=== PATIENT | female | born 1975 | race Caucasian/White ===

== ENCOUNTER → 2018-07-25 10:30 | Outpatient (CLI) | payer BC, SELFPAY ==
[2018-07-30 13:30] LABS: HPV APTIMA, High Risk Negative (Negative)
== END ==
PROVIDERS: Family Provider Family Medicine; PCP Family Medicine; Referring Provider Nurse Practitioner Women's Health; Visit Provider Nurse Practitioner Women's Health
DX: Z12.4 Encounter for screening for malignant neoplasm of cervix (principal)
CPT/HCPCS: 87624; 88175; G0145

== ENCOUNTER → 2018-07-30 07:50 | Outpatient (CLI) | payer BC, SELFPAY ==
[2018-07-30 08:11] LABS: Absolute Lymphocyte Count 2.23 X10^3/ul (0.83-4.51); Absolute Neutrophil Count 3.7 X10^3/uL (2.0-7.7); Basophil# 0.05 X10^3/uL; Basophil% 0.7 % (0-1); Eosinophil# 0.09 X10^3/uL; Eosinophils% 1.3 % (0-5); Hematocrit 39.9 % (37-47); Hemoglobin 13.4 g/dl (12.0-15.0); Lymphocyte # 2.23 X10^3/ul (4.0); Lymphocyte % 33.3 % (19-41); Mean Corp Hgb Conc 33.6 g/gl (32-36); Mean Corpuscular Hgb 30.9 pg (27.0-32.0); Mean Corpuscular Volume 91.9 fL (81-99); Mean Platelet Vol. 9.8 fl (6.2-12.0); Monocyte# 0.62 X10^3/uL; Monocyte% 9.3 % (0-10); Neutrophil # 3.68 X10^3/uL (2.7-7.7); Neutrophil % 55.1 % (47-70); POSITIVE COUNT NO; POSITIVE DIFFERENTIAL NO; POSITIVE MORPHOLOGY NO; Platelet Count 233 K/mm3 (150-450); RBC Distribution Width CV 12.4 % (11.6-14.6); Red Blood Count 4.34 M/mm3 (4.2-5.4); White Blood Count 6.7 K/mm3 (4.4-11.0)
[2018-07-30 08:58] LABS: Cholesterol 185 mg/dL (200); Glucose 87 mg/dL (74-106); High Density Lipoprotein 52 mg/dL; Thyroid Stim Hormone (TSH) 0.47 uIU/mL (0.358-3.74); Triglycerides 90 mg/dL; Very Low Density Lipoprotein 18 mg/dL (5-40)
== END ==
PROVIDERS: Family Provider Family Medicine; PCP Family Medicine; Referring Provider Nurse Practitioner Women's Health; Visit Provider Nurse Practitioner Women's Health
DX: Z00.00 Encounter for general adult medical examination without abnormal findings (principal); R53.83 Other fatigue
CPT/HCPCS: 36415; 80061; 82947; 84443; 85025

== ENCOUNTER → 2019-01-30 06:44 | Outpatient (CLI) | payer BC, SELFPAY ==
[2019-01-16 09:34] VITALS: BMI 27.6
--- NOTE | 2019-01-30 06:46 | CT_ITS ---
STUDY: CT MAXILLOFACIAL SINUSES REASON FOR EXAM: Female, 43 years old. Sinusitis x3 weeks RADIATION DOSAGE (If Supplied By Facility): CTDIvol = ( 33.06 ) mGy, DLP = ( 755.34 ) mGycm TECHNIQUE: The patient was scanned in a multi detector CT scanner. High resolution axial imaging was performed without the administration of intravenous contrast material. Sagittal and coronal images were reconstructed. Individualized dose optimization techniques were used for this CT. COMPARISON: None. FINDINGS: FRONTAL SINUSES: Normal aeration, without mucosal inflammatory disease. ETHMOIDAL SINUSES: Normal aeration, without mucosal inflammatory disease. MAXILLARY SINUSES: Normal aeration, with minimal left mucosal inflammatory disease. SPHENOIDAL SINUSES: Normal aeration, with minimal bilateral mucosal inflammatory disease. There is patency of the bilateral maxillary infundibuli with normal uncinate processes, ethmoid bullae, and hiatus semilunaris. Bilateral small bilateral middle turbinates. Normal bilateral inferior turbinates. There is a minimal right sided nasal septal deviation with a small right sided nasal septal spur. There is patency of the bilateral nasal airways. The visualized osseous structures are normal. The mandible and bilateral temporomandibular joints are intact. 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 The bilateral mastoid air cells are clear. The visualized bilateral orbital contents are normal. CT/Sinus/Facial Bone IMPRESSION: Minimal sinus inflammation as above. Patent bilateral ostiomeatal units. Other nonacute findings as outlined above. Electronically Signed: Sarina Cheek MD at 4:24 EDT , Service support ,
== END ==
PROVIDERS: Family Provider Family Medicine; PCP Family Medicine; Referring Provider Otolaryngology; Visit Provider Otolaryngology
DX: J32.9 Chronic sinusitis, unspecified (principal)
CPT/HCPCS: 70486

== ENCOUNTER → 2019-07-10 | Outpatient (CLI) | payer BC, SELFPAY ==
[2019-07-03 09:31] VITALS: BMI 27.6
--- NOTE | 2019-07-10 13:53 | US_ITS ---
STUDY: ULTRASOUND TRANSVAGINAL CLINICAL: Female, 44 years old. Bleeding TECHNIQUE: Transabdominal and Transvaginal COMPARISON: None. FINDINGS: Normal uterine size measuring 9.6 cm in maximal craniocaudal dimension. There are no myometrial masses. Normal endometrial thickness measuring 1.3 mm. There are no endometrial masses, and there is no fluid in the endometrial cavity. Normal uterine cervix. Normal right ovary, measuring 3.6 x 2.5 x 2.6 cm. There are multiple follicles with a 2.0 cm dominant cyst. Normal left ovary, measuring 2.4 x 2.0 x 1.3 cm. There are multiple follicles without a dominant cyst. There is no free fluid in the pelvis. Bladder is sonographically normal US/Transvaginal Non- IMPRESSION: No suspicious sonographic findings Electronically Signed: Froy Ny MD at 15:55 EDT , Service support ,
--- NOTE | 2019-07-10 13:53 | US_ITS ---
STUDY: ULTRASOUND TRANSVAGINAL CLINICAL: Female, 44 years old. Bleeding TECHNIQUE: Transabdominal and Transvaginal COMPARISON: None. FINDINGS: Normal uterine size measuring 9.6 cm in maximal craniocaudal dimension. There are no myometrial masses. Normal endometrial thickness measuring 1.3 mm. There are no endometrial masses, and there is no fluid in the endometrial cavity. Normal uterine cervix. Normal right ovary, measuring 3.6 x 2.5 x 2.6 cm. There are multiple follicles with a 2.0 cm dominant cyst. Normal left ovary, measuring 2.4 x 2.0 x 1.3 cm. There are multiple follicles without a dominant cyst. There is no free fluid in the pelvis. Bladder is sonographically normal US/Pelvic (Non ) IMPRESSION: No suspicious sonographic findings Electronically Signed: Froy Ny MD at 15:55 EDT , Service support ,
--- NOTE | 2019-07-10 16:27 | BI_ITS ---
MAMMOGRAPHY - BILATERAL SCREENING REASON FOR EXAM: Female, 44 years old. Routine annual screening examination. PERTINENT HISTORY: Non-contributory. TECHNIQUE: Digital bilateral breast nichole (3D mammographic acquisition) in the CC and MLO projections. 2-D mediolateral oblique (MLO) and craniocaudad (CC) views of both breasts were obtained. CAD: Full Field Digital Mammography with Computer Added Detection was performed. COMPARISON: None. Baseline examination. FINDINGS: Breast Composition: The breasts are heterogeneously dense, which may obscure small masses. There is a 1.6 cm x 1.9 cm well-defined nodule in the central lateral aspect of the right breast. Correlation with ultrasound is recommended for further evaluation. No other significant abnormalities are identified. BI/SCREEN MAMM (CAD) W/NICHOLE BILAT IMPRESSION: 1.6 cm x 1.9 cm well-defined nodule in the central lateral aspect of the right breast as described. Correlation with ultrasound is recommended. ASSESSMENT CATEGORY: BIRADS Category 0: Incomplete. Need additional imaging evaluation. A letter regarding these results will be sent to the patient by the facility within 30 days. Approximately 10% of breast cancers are not detected by mammography. A normal mammogram should not delay biopsy of a clinically suspicious abnormality. [id number] Electronically Signed: John Cm, at 8:57 EDT , Service support ,
== END | disposition home or self-care (01) ==
LOC: US 13:38
PROVIDERS: Family Provider Family Medicine; PCP Family Medicine; Referring Provider Nurse Practitioner Women's Health; Visit Provider Nurse Practitioner Women's Health
DX: N93.9 Abnormal uterine and vaginal bleeding, unspecified (principal); Z12.31 Encounter for screening mammogram for malignant neoplasm of breast
CPT/HCPCS: 76830; 76856; 77063; 77067; 93976

== ENCOUNTER → 2019-07-17 | Outpatient (CLI) | payer BC, SELFPAY ==
[2019-07-03 09:31] VITALS: BMI 27.6
--- NOTE | 2019-07-17 10:59 | US_ITS ---
STUDY: ULTRASOUND BREAST - RIGHT REASON FOR EXAM: Female, 44 years old. Abnormal screening mammogram. TECHNIQUE: Axial and longitudinal images of the RIGHT breast were performed with a high resolution ultrasound transducer. COMPARISON: Comparison is made with prior mammogram dated July 10, 2019. FINDINGS: RIGHT Breast: The mammographic abnormality corresponds to a 2.9 cm x 3.2 cm x 1.5 cm septated cyst. This is at the 11:00 position breast at 2 cm from nipple. US/Breast Limited Unilateral IMPRESSION: The mammographic abnormality corresponds to a 2.9 cm x 3.2 cm x 1.5 cm septated cyst. ASSESSMENT CATEGORY: BIRADS Category 2: Benign. A letter regarding these results will be sent to the patient by the facility within 30 days. Electronically Signed: John Cm, at 13:37 EDT , Service support ,
== END | disposition home or self-care (01) ==
PROVIDERS: Family Provider Family Medicine; PCP Family Medicine; Referring Provider Nurse Practitioner Women's Health; Visit Provider Nurse Practitioner Women's Health
DX: R92.8 Other abnormal and inconclusive findings on diagnostic imaging of breast (principal)
CPT/HCPCS: 76642

== ENCOUNTER → 2019-07-25 | Outpatient (CLI) | payer BC, SELFPAY ==
--- NOTE | 2019-07-24 10:00 | CER_PTH ---
PATIENT: ISATU MATHEWS LOC: [facility] U#:[id number] AGE/SX: 44/F ROOM: RE07/25/[address]: MARTHA Lopez : 1975 BED: DIS: 07/25/2019 SPEC #: [id number] RECD: 07/24/19 16:50 STATUS: SHLOMO REAdolph #: [id number] KIM: 07/24/19 10:[address]: Jackie Steel NP DEPT: SURGICAL PATHOLOGY RECD BY: Cecil Colby ENTERED: 07/25/19 11:49 SP TYPE: CERV OTHR DR: Dr. Vineet Bazzi, DO Tissues: A - Uterine cervix, NOS B - Endometrium, NOS Procedures: Surgery Specimen Level IV HEADER OPERATION: Cervical polypectomy; endometrial biopsy PRE-OP DIAGNOSIS: Abnormal uterine bleeding TISSUE SUBMITTED: A - Cervix, B - Endometrial lining MICROSCOPIC DIAGNOSIS A. Cervix, biopsy: Polypoid fragment of endocervix with squamous metaplasia and chronic inflammation. B. Endometrium, biopsy: Secretory endometrium. AM:madhu 07/26/19 MICROSCOPIC DESCRIPTION Slides are reviewed. GROSS DESCRIPTION A - Received in fixative is one container labeled with the patient's name and designated cervix. The specimen consists of a single irregular fragment of light to dark charles soft tissue measuring 0.6 x 0.5 x 0.2 cm. The specimen is totally submitted in one cassette. B - Received in fixative is one container labeled with the patient's name and designated endometrial lining. The specimen consists of multiple elongated fragments of light charles soft tissue that in aggregate measure 2.5 x 2 x 0.2 cm. The specimen is totally submitted in one cassette. / AM:madhu 07/25/19 TC:3 CPT: 57868 x2
[2019-07-24 10:12] VITALS: BMI 27.6
== END | disposition home or self-care (01) ==
PROVIDERS: Family Provider Family Medicine; PCP Family Medicine; Referring Provider Nurse Practitioner Women's Health; Visit Provider Nurse Practitioner Women's Health
DX: N93.9 Abnormal uterine and vaginal bleeding, unspecified (principal)
CPT/HCPCS: 88305

== ENCOUNTER → 2020-03-18 | Outpatient (CLI) | payer BC, SELFPAY ==
[2019-11-20 09:30] VITALS: BMI 27.6
[2020-03-18 15:44] LABS: Absolute Lymphocyte Count 2.22 X10^3/uL (0.83-4.51); Absolute Neutrophil Count 4.7 X10^3/uL (2.0-7.7); Basophil# 0.05 X10^3/uL; Basophil% 0.7 % (0-1); Eosinophil# 0.09 X10^3/uL; Eosinophils% 1.2 % (0-5); Hematocrit 39.5 % (37-47); Hemoglobin 12.5 g/dL (12.0-15.0); Lymphocyte # 2.22 X10^3/ul (4.0); Lymphocyte % 28.9 % (19-41); Mean Corp Hgb Conc 31.6 g/dL (32-36); Mean Corpuscular Volume 94.7 fL (81-99); Mean Platelet Vol. 10.6 fl (6.2-12.0); Monocyte# 0.62 X10^3/uL; Monocyte% 8.1 % (0-10); NRBC Flagged by Analyzer 0 % (0-5); Neutrophil # 4.69 X10^3/uL (2.7-7.7); Platelet Count 267 K/mm3 (150-450); RBC Distribution Width CV 13.1 % (11.6-14.6); RBC Distribution Width SD 44.8 fl (35.1-43.9); Red Blood Count 4.17 M/mm3 (4.2-5.4); White Blood Count 7.7 K/mm3 (4.4-11.0)
[2020-03-18 16:35] LABS: Ferritin 4 ng/mL (8-252); Iron 30 ug/dL (50-170); T4 Free Direct 0.87 ng/dL (0.76-1.46); Thyroid Stim Hormone (TSH) 0.47 uIU/mL (0.358-3.74)
== END | disposition home or self-care (01) ==
LOC: BFHLAB 11:22
PROVIDERS: PCP Family Medicine; Visit Provider Family Medicine
DX: D64.9 Anemia, unspecified (principal); E01.0 Iodine-deficiency related diffuse (endemic) goiter; R53.83 Other fatigue
CPT/HCPCS: 36415; 82728; 83540; 84439; 84443; 85025

== ENCOUNTER → 2020-03-26 09:58 | Outpatient (CLI) | payer BC, SELFPAY ==
[2019-11-20 09:30] VITALS: BMI 27.6
--- NOTE | 2020-03-26 10:02 | US_ITS ---
STUDY: THYROID ULTRASOUND REASON FOR EXAM: Female, 44 years old. NODULES TECHNIQUE: Ultrasound evaluation of the thyroid was performed with real-time and static porter-scale imaging. COMPARISON: Prior thyroid ultrasound of June 02, 2017 FINDINGS: RIGHT LOBE: The right lobe of the thyroid gland measures 5.0 x 1.7 x 1.3 cm. There is a homogeneous echotexture. There are 3 hypoechoic heterogeneous nodules measuring 5 x 4 x 4 mm, 5 x 4 x 3 mm and 5 x 4 x 4 mm. LEFT LOBE: The left lobe of the thyroid gland measures 5.3 x 1.9 x 1.4 cm. There is a homogeneous echotexture. There is a single hypoechoic heterogeneous nodule measuring 7 x 5 x 3 mm. ISTHMUS: The isthmus measures 0.2 cm. US/Thyroid IMPRESSION: Continued mild thyroid enlargement not substantially changed from the prior exam. 3. Stable solid hypoechoic heterogeneous nodules of the right thyroid not substantially changed from the prior exam. Single hypoechoic heterogeneous solid nodule of the left thyroid 7 x 5 x 3 mm and not substantially changed in size from the prior exam. Electronically Signed: Milli Wei MD at 16:56 EDT , Service support ,
== END ==
PROVIDERS: PCP Family Medicine; Referring Provider Family Medicine; Visit Provider Family Medicine
DX: E04.2 Nontoxic multinodular goiter (principal)
CPT/HCPCS: 76536

== ENCOUNTER → 2021-01-21 07:47 | Outpatient (CLI) | payer OTHER, SELFPAY ==
[2019-11-20 09:30] VITALS: BMI 27.6
--- NOTE | 2021-01-21 07:49 | RAD_ITS ---
STUDY: X-RAY - LUMBAR SPINE REASON FOR EXAM: Female, 45 years old. LOW BACK PAIN TECHNIQUE: 2 view(s) of the lumbar spine were obtained. COMPARISON: None FINDINGS: Normal lumbar lordosis. There is no substantial scoliosis. There is a normal alignment of the vertebrae. Normal vertebral bodies and endplates. Normal disc space heights. There is evidence of bilateral tubal ligation clips. RAD/Lumbar Spine 2 or 3 Views IMPRESSION: Normal x-ray examination of the lumbar spine. Electronically Signed: John Cm MD at 12:51 EDT , Service support ,
== END ==
PROVIDERS: PCP Family Medicine; Referring Provider Anesthesiology Pain Medicine; Visit Provider Anesthesiology Pain Medicine
DX: M54.5 Low back pain (principal)
CPT/HCPCS: 72100

== ENCOUNTER 2021-10-08 14:21 | Outpatient (CLI) | payer BC, SELFPAY ==
--- NOTE | 2021-10-08 14:28 | RAD_ITS ---
STUDY: X-RAY CHEST REASON FOR EXAM: Female, 46 years old. TB SCREENING TECHNIQUE: PA and lateral views of the chest. COMPARISON: Comparison is made with prior study dated 02/26/2017. FINDINGS: The lungs are clear and expanded. There is no demonstrated pleural abnormality. Normal size heart. Normal mediastinum and anabelle. Normal visualized pulmonary arteries. Normal visualized aortic arch and descending thoracic aorta. There is a mild dextroscoliosis of the thoracic spine. Normal visualized ribs, clavicles, and shoulders. There is no demonstrated abnormality of the visualized soft tissue structures of the upper abdomen. RAD/Chest PA and Lateral IMPRESSION: Normal x-ray examination of the chest. Electronically Signed: John Cm MD at 15:07 EST , Service support ,
== END 2021-10-08 23:59 | disposition short-term general hospital (02) ==
LOC: RAD 14:26
PROVIDERS: PCP Family Medicine; Referring Provider Family Medicine; Visit Provider Family Medicine
DX: Z11.1 Encounter for screening for respiratory tuberculosis (principal)
CPT/HCPCS: 71046

== ENCOUNTER 2021-10-25 09:13 | Outpatient (CLI) | payer BC, SELFPAY ==
--- NOTE | 2021-10-25 09:20 | RAD_ITS ---
STUDY: X-RAY - BILATERAL RIBS WITH CHEST REASON FOR EXAM: Female, 46 years old. TRAUMA TECHNIQUE - RIBS: 6 view(s) of the ribs. TECHNIQUE - CHEST: Single PA view of the chest. COMPARISON: Comparison is made with prior chest radiograph dated 10/08/2021. FINDINGS - RIBS : Normal visualized ribs without a demonstrated fracture. FINDINGS - CHEST: The lungs are clear and expanded. There is no demonstrated pleural abnormality. Normal size heart. Normal mediastinum and anabelle. Normal visualized pulmonary arteries. Normal visualized aortic arch and descending thoracic aorta. Normal visualized thoracic spine. Normal visualized ribs, clavicles, and shoulders. There is no demonstrated abnormality of the visualized soft tissue structures of the upper abdomen. RAD/Ribs Jon Min 4V w/PA Chest IMPRESSION: RIBS: Normal x-ray examination of the bilateral ribs. CHEST: Normal x-ray examination of the chest. Electronically Signed: John Cm MD at 12:20 EST ,
== END 2021-10-25 23:59 | disposition short-term general hospital (02) ==
LOC: RAD 09:15
PROVIDERS: PCP Family Medicine; Referring Provider Anesthesiology Pain Medicine; Visit Provider Anesthesiology Pain Medicine
DX: S29.9XXA Unspecified injury of thorax, initial encounter (principal)
CPT/HCPCS: 71101; 71111

== ENCOUNTER → 2022-01-31 | Outpatient (CLI) | payer BC, SELFPAY ==
--- NOTE | 2022-01-31 09:20 | EMB_PTH ---
PATIENT: ISATU MATHEWS LOC: [facility] U#:[id number] AGE/SX: 46/F ROOM: RE01/31/[address]: MARTHA Lopez : 1975 BED: DIS: 01/31/2022 SPEC #: [id number] RECD: 01/31/22 10:08 STATUS: SHLOMO REAdolph #: [id number] KIM: 01/31/22 09:[address]: Jackie Steel NP DEPT: SURGICAL PATHOLOGY RECD BY: Nupur Castañeda ENTERED: 01/31/22 10:38 SP TYPE: ENDOM BX/C DENY DR: Dr. Vineet Bazzi DO Tissues: Endometrium, NOS Procedures: Surgery Specimen Level IV HEADER OPERATION: Endometrial biopsy PRE-OP DIAGNOSIS: Abnormal uterine bleeding TISSUE SUBMITTED: Endometrial biopsy MICROSCOPIC DIAGNOSIS Endometrial biopsy: Proliferative endometrium. See comment. MAG:madhu 02/01/2022 COMMENT Clinical correlation and appropriate follow up are necessary. MICROSCOPIC DESCRIPTION Slides are reviewed. GROSS DESCRIPTION Received is one container labeled with the patient's name and not further designated. The specimen consists of multiple irregular fragments of pink soft tissue that in aggregate measure 2.5 x 1.5 x 0.2 cm. The specimen is totally submitted in one cassette. / SJ:rg 01/31/2022 :4 CPT: 13903
== END | disposition home or self-care (01) ==
LOC: LABSPEC 10:19
PROVIDERS: PCP Family Medicine; Referring Provider Nurse Practitioner Women's Health; Visit Provider Nurse Practitioner Women's Health
DX: N93.9 Abnormal uterine and vaginal bleeding, unspecified (principal)
CPT/HCPCS: 88305

== ENCOUNTER → 2022-02-16 | Outpatient (CLI) | payer BC, SELFPAY ==
--- NOTE | 2022-02-16 07:32 | US_ITS ---
STUDY: ULTRASOUND OF THE FEMALE PELVIS - COMPLETE REASON FOR EXAM: Female, 46 years old. AUB LMP: 02/12/2022 TECHNIQUE: Transabdominal and Transvaginal TECHNICAL QUALITY: Adequate. COMPARISON: 07/10/2019 FINDINGS: The uterus is anteverted and is in a midline position. The uterus measures 10.8 x 7.0 x 6.1 cm. Normal uterine cervix. The endometrium measures 5 mm in thickness, and is hyperechoic. There is no demonstrated endometrial mass. There is a 2 cm isoechoic mass within the right side of the body of the uterus consistent with an intramural fibroid. I.U.D. - The patient does not have an I.U.D. The right ovary is visualized. The right ovary measures 3.4 x 2.9 x 3.2 cm. There is no right ovarian cyst or ovarian mass. There is no visualized right adnexal mass or complex lesion. There is normal arterial and normal venous vascularity. The left ovary is visualized. The left ovary measures 2.5 x 2.2 x 2.0 cm. There is no left ovarian cyst or ovarian mass. There is no visualized left adnexal mass or complex lesion. There is normal arterial and normal venous vascularity. There is minimal fluid in the cul-de-sac. The pre void volume of the bladder was ml. The post void volume of the bladder was ml. Polycystic ovary disease: No. US/Pelvic (Non ) IMPRESSION: Small intramural fibroid in the right side of the body of the uterus. Electronically Signed: Jorden Callahan MD at 8:38 EDT ,
--- NOTE | 2022-02-16 07:32 | US_ITS ---
STUDY: ULTRASOUND OF THE FEMALE PELVIS - COMPLETE REASON FOR EXAM: Female, 46 years old. AUB LMP: 02/12/2022 TECHNIQUE: Transabdominal and Transvaginal TECHNICAL QUALITY: Adequate. COMPARISON: 07/10/2019 FINDINGS: The uterus is anteverted and is in a midline position. The uterus measures 10.8 x 7.0 x 6.1 cm. Normal uterine cervix. The endometrium measures 5 mm in thickness, and is hyperechoic. There is no demonstrated endometrial mass. There is a 2 cm isoechoic mass within the right side of the body of the uterus consistent with an intramural fibroid. I.U.D. - The patient does not have an I.U.D. The right ovary is visualized. The right ovary measures 3.4 x 2.9 x 3.2 cm. There is no right ovarian cyst or ovarian mass. There is no visualized right adnexal mass or complex lesion. There is normal arterial and normal venous vascularity. The left ovary is visualized. The left ovary measures 2.5 x 2.2 x 2.0 cm. There is no left ovarian cyst or ovarian mass. There is no visualized left adnexal mass or complex lesion. There is normal arterial and normal venous vascularity. There is minimal fluid in the cul-de-sac. The pre void volume of the bladder was ml. The post void volume of the bladder was ml. Polycystic ovary disease: No. US/Transvaginal Non- IMPRESSION: Small intramural fibroid in the right side of the body of the uterus. Electronically Signed: Jorden Callahan MD at 8:38 EDT ,
--- NOTE | 2022-02-16 07:32 | BI_ITS ---
MAMMOGRAPHY - BILATERAL SCREENING REASON FOR EXAM: Female, 46 years old. Routine annual screening examination. PERTINENT HISTORY: Non-contributory. TECHNIQUE: Digital bilateral breast nichole (3D mammographic acquisition) in the CC and MLO projections. 2-D mediolateral oblique (MLO) and craniocaudad (CC) views of both breasts were obtained. CAD: Full Field Digital Mammography with Computer Added Detection was performed. COMPARISON: Bilateral screening mammogram from 07/10/2019. Right breast ultrasound from 07/17/2019. FINDINGS: Breast Composition: The breasts are extremely dense, which lowers the sensitivity of mammography. There is a 3.1 x 2.8 cm oval mass in the right central upper breast, middle depth approximately 3.7 cm posterior to the nipple seen best on the tomosynthesis views. Further assessment with ultrasound is recommended. The lesion previously characterized as a cyst in the central left outer breast is no longer identified and may have resolved. No suspicious calcifications. No other significant abnormalities are identified. BI/SCRN MAMM (CAD)W/NICHOLE BILAT IMPRESSION: Further imaging evaluation recommended, as described above. (E) ASSESSMENT CATEGORY: BIRADS Category 0: Incomplete. Need additional imaging evaluation. A letter regarding these results will be sent to the patient by the facility within 30 days. Approximately 10% of breast cancers are not detected by mammography. A normal mammogram should not delay biopsy of a clinically suspicious abnormality. [id number] Electronically Signed: Neil Connelly, at 17:08 EDT ,
== END | disposition home or self-care (01) ==
LOC: US 07:30
PROVIDERS: PCP Family Medicine; Referring Provider Nurse Practitioner Women's Health; Visit Provider Nurse Practitioner Women's Health
DX: N93.9 Abnormal uterine and vaginal bleeding, unspecified (principal); Z12.31 Encounter for screening mammogram for malignant neoplasm of breast
CPT/HCPCS: 76830; 76856; 77063; 77067

== ENCOUNTER → 2022-02-18 | Outpatient (CLI) | payer BC, SELFPAY ==
--- NOTE | 2022-02-18 12:35 | US_ITS ---
STUDY: ULTRASOUND BREAST - RIGHT REASON FOR EXAM: Female, 46 years old. Abnormal screening mammogram. TECHNIQUE: Axial and longitudinal images of the RIGHT breast were performed with a high resolution ultrasound transducer. # OF IMAGES: 21 COMPARISON: 02/16/2022 FINDINGS: RIGHT Breast: Heterogeneous background echotexture. At 12 o''clock, 1 cm from the nipple, ultrasound confirms a 2.8 cm oval parallel circumscribed anechoic mass with posterior enhancement consistent with a cyst. Another adjacent 1.3 cm cyst is noted. At 11 o''clock, 1 cm from nipple, ultrasound confirms a 1.3 cm oval parallel circumscribed anechoic mass with posterior enhancement consistent with a cyst.: US/Breast Limited Unilateral IMPRESSION: Fibrocystic change. ASSESSMENT CATEGORY: BIRADS Category 2: Benign. A letter regarding these results will be sent to the patient by the facility within 30 days. Electronically Signed: Jorden Callahan MD at 14:57 EDT ,
== END | disposition home or self-care (01) ==
LOC: OPUS 12:34
PROVIDERS: PCP Family Medicine; Visit Provider Nurse Practitioner Women's Health
DX: N63.10 Unspecified lump in the right breast, unspecified quadrant (principal)
CPT/HCPCS: 76642

== ENCOUNTER → 2022-02-24 | Outpatient (CLI) | payer BC, SELFPAY ==
[2022-02-28 12:04] LABS: HPV APTIMA, High Risk Negative (Negative)
== END | disposition home or self-care (01) ==
LOC: LABSPEC 11:28
PROVIDERS: PCP Family Medicine; Visit Provider Obstetrics & Gynecology
DX: Z12.4 Encounter for screening for malignant neoplasm of cervix (principal)
CPT/HCPCS: 87624; 88175; G0145

== ENCOUNTER 2022-03-11 07:53 | Day surgery (SDC) | payer BC, SELFPAY ==
--- NOTE | 2022-03-10 16:46 | HP.PCM_ITS ---
History and Physical Date of Admission: 03/11/22 [facility] Department [address] [place] [address] OFFICE VISIT Date of Service:? 02/24/22 MR#: [id number] Acct: [id number] Name:? ISATU MATHEWS Rep #: [id number] : 1975 ? ? Provider: Dr. Selena Morrison, DO Age/Sex:? 46/F ? ? Location: [facility] – [place] Status: Signed Intake Vital Signs ? 02/24/2210:21 Height 5 ft 3 in Weight: 158 lb BMI 28.0 BP 142/92 H Intake Visit Reasons:?Surgical Consult poss. ablation Addiction Counselor Required: No Is patient in pain?: No Allergies metoclopramide [From Reglan] Adverse Reaction (Verified 02/24/22 10:21) Other Medications ferrous sulfate 325 mg (65 mg iron) tablet 325 mg PO DAILY 01/31/22 [History Confirmed 02/24/22] sertraline 100 mg tablet 100 mg PO DAILY 01/31/22 [History Confirmed 02/24/22] Post menopausal: No Patient : No : [facility] History? ADD (attention deficit disorder) Gave to child recently Surgical History? Hx of cholecystectomy S/P sinus surgery Family History? Father Esophageal cancer CVA (cerebral vascular accident)Grandfather Heart diseaseGrandmother ALS (amyotrophic lateral sclerosis)Mother SarcoidosisOther Cancer Multiple sclerosis Thyroid disorder Social History? Smoking Status:? Former smoker alcohol intake:? current alcohol intake frequency: holidays/special occasions only substance use type:? does not use caffeine:? Yes what type of physical activity do you participate in:? none seatbelt use:? always do you feel safe at home:? Yes additional social history:? 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 HPI Surgical Consult poss. ablation Details: ISATU REID is a 46 year old who presents for consultation for endometrial ablation. She has as h/o bilateral salpingectomy and as a 10.8 cm uterus with a 2 cm intramural fibroid. She declines other therapy. EMB was performed last visit and showed proliferative endometrirum Pregancy History ? ? ? 3 ? Elective abortions ? Hx Para ? ? ? 3 ? Spontaneous abortions ? Hx # Term Pregnancies ? Ectopic pregnancies ? Hx # Pregnancies ? Multiple births ? # of living children ? Past Pregnancies Del. Date Name GA/Weeks Outcome Route Bth Weight Gen Labor Lgth Anesthe arnaud Del Locatn Provider FOB Unknown Kathy-1995 ? Unknown Jose Juan-1997 ? Unknown Cameron-2001 ? ROS Const ROS Unobtainable: All systems reviewed & are unremarkable except as noted in H Resp Resp: Reports system reviewed and no additional complaints, except as documented; Denies cough GI GI: Reports as per HPI Psych Psych: Reports system reviewed and no additional complaints, except as documented Exam Const General: cooperative, healthy appearing, comfortable and no acute distress Resp Effort & Inspection: normal respiratory effort Skin General: no rashes or lesions noted Psych Appearance: grossly normal Speech and Movement: speech and movement normal Coding Level of Care Code Off vis,est,level 4 Diagnoses Abnormal uterine bleeding (AUB)? N93.9 Assessment and Plan Assessment and Plan (1) Abnormal uterine bleeding (AUB): ?Status:?Acute ?Comment: EMB, US ?Plan - Dr. Selena Morrison, DO: After discussing the patient's diagnosis and treatment plan options, patient wishes to proceed with surgical management.? I have discussed with the patient the risks, benefits, and alternatives of the procedure which include but are not limited to risks of anesthesia, bleeding, infection, possible damage to bowel, bladder, or surrounding vasculature which could lead to additional surgery to evaluate any complications.? Patient agrees to procedure and wishes to proceed.? ACOG/uptodate references given for additional information regarding procedure.? She would like to proceed with hysteroscopy marilyn ablation. will call when set up. consent signed. Plan Details Other Orders: ?Orders: ? PAP IG HPV APTIMA 16/18,45 Today Z12.4 ? UPDATE- I have seen the patient and performed any clinically relevant updates to the history and physical exam. Selena Morrison, DO
[2022-03-11] VITALS (7 sets, daily range): BP systolic 129–140; BP diastolic 82–95; PULSE 64–83; RESP 12–16; TEMP 36.3–36.8; O2SAT 96–99; BMI 26.7
[2022-03-11 08:28] LABS: Hematocrit 39.4 % (37-47); Hemoglobin 13.1 g/dL (12.0-15.0); Mean Corp Hgb Conc 33.2 g/dL (32-36); Mean Corpuscular Hgb 30.2 pg (27.0-32.0); Mean Corpuscular Volume 90.8 fL (81-99); Mean Platelet Vol. 10.2 fl (6.2-12.0); Platelet Count 256 K/mm3 (150-450); RBC Distribution Width CV 12.1 % (11.6-14.6); RBC Distribution Width SD 40.5 fl (35.1-43.9); Red Blood Count 4.34 M/mm3 (4.2-5.4)
[2022-03-11] MEDS: Lactated Ringers 1,000 ML 15 ML IV (08:28)
[2022-03-11 08:37] LABS: Internal QC Validated? YES +Cl - CLEAR BKGD; Pregnancy, Urine Negative Negative
--- NOTE | 2022-03-11 09:25 | EMB_PTH ---
PATIENT: ISATU MATHEWS [place] [facility] [place][id number] AGE/SX: 46/F ROOM: RE03/11/[address]: Dr. Selena Morrison DO : 1975 BED: DIS: 03/11/2022 SPEC #: [id number] RECD: 03/11/22 13:11 STATUS: SHLOMO ROLAND #: [id number] KIM: 03/11/22 09:[address]: Selena Morrison DEPT: SURGICAL PATHOLOGY RECD BY: Nupur Castañeda ENTERED: 03/11/22 13:26 SP TYPE: ENDOM BX/C OTHR DR: Dr. Vineet Bazzi DO Tissues: Endometrium, NOS Procedures: Surgery Specimen Level IV HEADER OPERATION: Hysteroscopy, D & C, Keiry endometrial ablation PRE-OP DIAGNOSIS: Abnormal uterine bleeding TISSUE SUBMITTED: Endometrial curettings MICROSCOPIC DIAGNOSIS Endometrium, curettings: Mildly disordered proliferative endometrium with focal glandular breakdown. AM:madhu 03/14/2022 MICROSCOPIC DESCRIPTION Slides are reviewed. GROSS DESCRIPTION Received in fixative is one container labeled with the patient's name and designated endometrial curettings. The specimen consists of multiple irregular fragments of pink soft tissue mixed with fragments of polypoid tissue that in aggregate measure 5 x 3 x 0.2 cm. The specimen is totally submitted in two cassettes. / SJ:madhu 03/11/2022 TC:5 CPT: 37273
--- NOTE | 2022-03-11 09:36 | DCINST_ITS ---
Discharge Instructions Diet Discharge Diet: No restrictions Activity Discharge Activity: Return to Normal Activity, May Shower and May Take a Tub Bath (after 1 week) May resume sexual activity in: 1-2 weeks Weight Bearing Status: Weight bearing as tolerated Lifting Restrictions: none Dressing / Incision Call your doctor if you observe: Fever of 101 or Higher, Using more than 1 pad per hour, Shortness of breath and Uncontrolled pain Follow Up Care Please Follow Up With: Selena Morrison DO When: Call [phone] to schedule appointment. Test Results: Test results from this visit will be discussed in further detail at your follow- up appointment, if applicable. Discharge Plan Admission Primary Reason for Your Visit: uterine ablation Attending Provider: Selena Morrison Primary Care Provider: Vineet Bazzi Instructions Patient Instructions: Endometrial Ablation Discharge Orders/Prescriptions Prescriptions: New ibuprofen 800 mg tablet 800 mg PO Q8H PRN (Reason: pain) 7 Days Qty: 30 0RF oxycodone-acetaminophen [Percocet] 5-325 mg tablet 1 tab PO Q6H PRN (Reason: pain) 3 Days Qty: 5 0RF Continued sertraline [Zoloft] 100 mg tablet 100 mg PO DAILY ferrous sulfate 325 mg (65 mg iron) tablet 325 mg PO PRN PRN (Reason: ANEMIA) esomeprazole magnesium [Nexium] 20 mg Capsule,Delayed Release(Dr/Ec) 20 mg PO PRN PRN (Reason: Indigestion) Referrals / Follow Up: Vineet Bazzi DO [Primary Care Provider] - Disposition Disposition (needs filled in before D/C Order can be placed): Home, Self Care
--- NOTE | 2022-03-11 09:41 | PCM.OP.BLANK ---
Problems Associated Problem List Diagnoses (1) Abnormal uterine bleeding (AUB): Operative Report Date of Procedure: 11/16/21 Procedure: hysteroscopy D&C keiry ablation preoperative diagnosis: abnormal uterine bleeding Postoperative diagnosis:abnormal uterine bleeding Surgeon: Dr. Selena Morrison DO EBL: minimal urine output: 30cc findings: atrophic appearing uterus specimens removed: endometrial curettings Details of the procedure: Patient was prepped and draped in a normal sterile fashion under MAC anesthesia. A weighted speculum was placed in the vagina and the anterior lip of the cervix was grasped with a single-tooth tenaculum. A paracervical block was placed with 1% lidocaine. Cervix was progressively dilated to allow passage of a 5 mm hysteroscope. The lining was fully visualized and noted to have an atrophic appearing lining . Uterine sounded to 8.5 cm. Curettage was performed and specimen was sent to pathology. The keiry device was then passed into the uterus. All saftey checks were met and the burn cycle completed 120 seconds. A second look with the hysteroscope showed adequate blanching of the tissue. All instruments were removed from the vagina and excellent hemostasis was noted. Patient was awoken and taken to recovery in stable condition. Multi Select Codes Urinary/Genital Urinary/Genital CPT Codes: 26542 Keiry/Novasure and 84350 Hysteroscopy,EMC, Polypectomy
[2022-03-11] MEDS: Lidocaine 1% (50 ml mdv) 50 ML Vial (09:42)
== END 2022-03-11 11:42 | disposition home or self-care (01) ==
LOC: SDC 07:56 → AC 07:56
PROVIDERS: PCP Family Medicine; Referring Provider Obstetrics & Gynecology; Visit Provider Obstetrics & Gynecology
PROC: 0U5B8ZZ Destruction of Endometrium, Via Natural or Artificial Opening Endoscopic (ICD-10-PCS; CPT 58558; principal; 2022-03-11 09:10)
DX: N85.8 Other specified noninflammatory disorders of uterus (principal); K21.9 Gastro-esophageal reflux disease without esophagitis; F32.A Depression, unspecified; Z79.899 Other long term (current) drug therapy; Z87.891 Personal history of nicotine dependence; F98.8 Other specified behavioral and emotional disorders with onset usually occurring in childhood and adolescence
CPT/HCPCS: 58353; 81025; 85027; 88305; J7120; J2405

== ENCOUNTER → 2023-04-17 | Outpatient (CLI) | payer OTHER, SELFPAY ==
[2023-04-17 12:57] LABS: Absolute Lymphocyte Count 1.63 X10^3/uL (0.83-4.51); Absolute Neutrophil Count 4.8 X10^3/uL (2.0-7.7); Basophil# 0.04 X10^3/uL; Basophil% 0.6 % (0-1); Eosinophil# 0.03 X10^3/uL; Eosinophils% 0.4 % (0-5); Hematocrit 40.2 % (37-47); Hemoglobin 12.9 g/dL (12.0-15.0); Lymphocyte # 1.63 X10^3/ul (0.83-4.51); Lymphocyte % 23.4 % (19-41); Mean Corp Hgb Conc 32.1 g/dL (32-36); Mean Corpuscular Hgb 29.9 pg (27.0-32.0); Mean Corpuscular Volume 93.1 fL (81-99); Mean Platelet Vol. 10.1 fl (6.2-12.0); Monocyte# 0.48 X10^3/uL; Monocyte% 6.9 % (0-10); NRBC Flagged by Analyzer 0 % (0-5); Neutrophil # 4.79 X10^3/uL (2.7-7.7); Neutrophil % 68.6 % (47-70); Platelet Count 280 K/mm3 (150-450); RBC Distribution Width CV 12.6 % (11.6-14.6); RBC Distribution Width SD 43.5 fl (35.1-43.9); Red Blood Count 4.32 M/mm3 (4.2-5.4)
[2023-04-17 13:35] LABS: Vitamin B12 396 pg/mL (211-911); Vitamin D,25 Hydroxy 36.4 ng/mL
[2023-04-17 13:50] LABS: AST(SGOT) 8 U/L (15-37); Alanine Aminotransfer ALT/SGPT 23 U/L (13-56); Albumin, Serum 3.7 g/dL (3.2-5.0); Alkaline Phosphatase 65 U/L (45-117); Anion Gap 4 (5-15); BUN 18 mg/dL (7-18); Calcium,Total 9.1 mg/dL (8.5-10.1); Chloride 108 mmol/L (98-107); Creatinine, Serum 0.95 mg/dL (0.55-1.02); EST Glomerular Filtration Rate 67 mL/min (>60); Est Glom Filt Rate - Afr Amer 82 mL/min (>60); Ferritin 29 ng/mL (8-252); Globulin 3.8 g/dL (2.2-4.2); Glucose 102 mg/dL (74-106); Potassium 4.6 mmol/L (3.5-5.1); Protein, Total 7.5 g/dL (6.4-8.2); Sodium Level 139 mmol/L (136-145); T4 Free Direct 0.92 ng/dL (0.76-1.46); Thyroid Stim Hormone (TSH) 0.61 uIU/mL (0.358-3.74)
== END | disposition home or self-care (01) ==
PROVIDERS: PCP Nurse Practitioner Family; Referring Provider Nurse Practitioner Family; Visit Provider Nurse Practitioner Family
DX: E61.1 Iron deficiency (principal); E16.2 Hypoglycemia, unspecified; E04.2 Nontoxic multinodular goiter
CPT/HCPCS: 36415; 80053; 82306; 82607; 82728; 84439; 84443; 85025

== ENCOUNTER → 2025-05-09 | Outpatient (CLI) | payer OTHER, SELFPAY ==
[2025-05-09 15:28] LABS: Hematocrit 42.4 % (37-47); Hemoglobin 13.8 g/dL (12.0-15.0); Immature Granulocytes Count 0.040 X10^3/uL (0.0-0.0); Mean Corp Hgb Conc 32.5 g/dL (32-36); Mean Corpuscular Volume 92.8 fL (81-99); Mean Platelet Vol. 9.8 fl (6.2-12.0); NRBC Flagged by Analyzer 0 % (0-5); Platelet Count 336 K/mm3 (150-450); RBC Distribution Width CV 12.7 % (11.6-14.6); RBC Distribution Width SD 43.4 fl (35.1-43.9); Red Blood Count 4.57 M/mm3 (4.2-5.4); White Blood Count 8.2 K/mm3 (4.4-11.0)
[2025-05-09 15:54] LABS: AST(SGOT) 16 U/L (<=31); Alanine Aminotransfer ALT/SGPT 18 U/L (<=34); Albumin, Serum 4.3 g/dL (3.5-5.0); Alkaline Phosphatase 70 U/L (35-104); Anion Gap 11 (5-15); BUN 8 mg/dL (4-19); BUN/Creat Ratio 8.5 RATIO (10-20); Calcium,Total 9.5 mg/dL (7.6-11.0); Carbon Dioxide 24.6 mmol/L (21.0-32.0); Chloride 102 mmol/L (98-108); Cholesterol 231 mg/dL (<=200); Globulin 3.1 g/dL (2.2-4.2); Glucose 94 mg/dL (70-99); Low Density Lipoprotein Calc. 124 mg/dL; Potassium 3.9 mmol/L (3.3-5.1); Triglycerides 203 mg/dL; Very Low Density Lipoprotein 41 mg/dL (5-40); cholesterol:hdl ratio screen 3.49
== END | disposition home or self-care (01) ==
LOC: BFHLAB 12:03
PROVIDERS: PCP Nurse Practitioner Family; Referring Provider Nurse Practitioner Family; Visit Provider Nurse Practitioner Family
DX: Z00.01 Encounter for general adult medical examination with abnormal findings (principal)
CPT/HCPCS: 36415; 80053; 80061; 85025